=== PATIENT | female | born 1980 ===

== ENCOUNTER → 2019-09-22 | Outpatient (CLI) | payer OTHER | END | disposition home or self-care (01) | LOC: PRENATAL 11:30 | PROVIDERS: ATTEND Obstetrics & Gynecology | DX: O36.80X1 Pregnancy with inconclusive fetal viability, fetus 1 (principal); O09.522 Supervision of elderly multigravida, second trimester; O34.12 Maternal care for benign tumor of corpus uteri, second trimester ==

== ENCOUNTER → 2019-11-11 | Outpatient (CLI) | payer OTHER | END | disposition home or self-care (01) | LOC: PRENATAL 08:00 | PROVIDERS: ATTEND Obstetrics & Gynecology Maternal & Fetal Medicine | DX: O34.12 Maternal care for benign tumor of corpus uteri, second trimester (principal); O35.0XX1 Maternal care for (suspected) central nervous system malformation in fetus, fetus 1; O35.3XX1 Maternal care for (suspected) damage to fetus from viral disease in mother, fetus 1; O98.512 Other viral diseases complicating pregnancy, second trimester; O09.522 Supervision of elderly multigravida, second trimester; Z36.89 Encounter for other specified antenatal screening; Z3A.19 19 weeks gestation of pregnancy ==

== ENCOUNTER 2022-04-06 13:52 | Outpatient (CLI) | payer OTHER | END 2022-04-06 16:00 | disposition home or self-care (01) | LOC: PRENATAL 13:52 | PROVIDERS: ATTEND Obstetrics & Gynecology Maternal & Fetal Medicine | DX: O36.80X0 Pregnancy with inconclusive fetal viability, not applicable or unspecified (principal); O09.529 Supervision of elderly multigravida, unspecified trimester; O34.219 Maternal care for unspecified type scar from previous cesarean delivery; Z3A.13 13 weeks gestation of pregnancy ==

== ENCOUNTER 2022-05-24 08:03 | Outpatient (CLI) | payer OTHER | END 2022-05-24 09:02 | disposition home or self-care (01) | LOC: PRENATAL 08:03 | PROVIDERS: ATTEND Obstetrics & Gynecology Maternal & Fetal Medicine | DX: O35.9XX0 Maternal care for (suspected) fetal abnormality and damage, unspecified, not applicable or unspecified (principal); O09.529 Supervision of elderly multigravida, unspecified trimester; O34.00 Maternal care for unspecified congenital malformation of uterus, unspecified trimester; Z14.8 Genetic carrier of other disease; O34.219 Maternal care for unspecified type scar from previous cesarean delivery; Z3A.20 20 weeks gestation of pregnancy ==

== ENCOUNTER 2022-08-09 08:20 | Outpatient (CLI) | payer OTHER | END 2022-08-09 10:15 | disposition home or self-care (01) | LOC: PRENATAL 08:20 | PROVIDERS: ATTEND Obstetrics & Gynecology Maternal & Fetal Medicine | DX: O26.849 Uterine size-date discrepancy, unspecified trimester (principal); O09.529 Supervision of elderly multigravida, unspecified trimester; O34.00 Maternal care for unspecified congenital malformation of uterus, unspecified trimester; O36.8199 Decreased fetal movements, unspecified trimester, other fetus; O99.210 Obesity complicating pregnancy, unspecified trimester; Z3A.31 31 weeks gestation of pregnancy ==